=== PATIENT | male | born 2000 | race Caucasian/White ===

== ENCOUNTER 2023-11-18 15:58 | Emergency (ER) | payer OTHER ==
[2023-11-18 16:07] VITALS: BP 125/80; PULSE 115; RESP 16; TEMP 98.3; BMI 36.6
[2023-11-18] MEDS ORDERED: ALBUTEROL SO4 0.083% IH SOL 2.5 MG/3 ML VIAL.NEB. NEB ONE ×2 (16:40→16:45)
== END 2023-11-18 18:42 | disposition home or self-care (01) ==
LOC: FER 15:58
PROC: 3E0F7GC Introduction of Other Therapeutic Substance into Respiratory Tract, Via Natural or Artificial Opening (ICD-10-PCS; principal; 2023-11-18)
DX: R09.81 Nasal congestion (principal); M79.10 Myalgia, unspecified site; R53.81 Other malaise; J02.9 Acute pharyngitis, unspecified; R09.89 Other specified symptoms and signs involving the circulatory and respiratory systems; R05.9 Cough, unspecified; J06.9 Acute upper respiratory infection, unspecified; Z20.822 Contact with and (suspected) exposure to COVID-19
CPT/HCPCS: 0241U-QW; 71046-TC-FY; 99284-25